=== PATIENT | female | born 1990 | race Two or more races ===

== ENCOUNTER 2018-10-23 19:14 | Inpatient (IN) | payer OTHER ==
[~2018-10-23] VITALS: Ht 167.6 cm; Wt 70.3 kg
--- NOTE | 2018-10-23 19:35 | NUR ---
Pt came to emergency department complaining of nausea, vomitting, diarrhea, and abd pain. Pt AxOx4. Respirations even and unlabored. Abd pain 7/10, non-radiating in the lower R quadrant. Pain started after eating a burrito yesterday, vomitting and diarrhea x8 since yesterday. Pt put on the monitor. Pending eval from .
[2018-10-23 19:56] LABS: APPEARANCE,URINE Clear (CLEAR); BILIRUBIN,URINE Negative (NEGATIVE); BLOOD, URINE Negative Ery/uL (NEGATIVE); COLOR,URINE Yellow (YELLOW); KETONES,URINE Negative (NEGATIVE); LEUKOCYTE ESTERASE ,URINE Negative (NEGATIVE); NITRITE, URINE Negative (NEGATIVE); PH,URINE 8.5 (5.0-8.0); PROTEIN,URINE Negative (NEGATIVE); UGLUCOSE Negative (NEGATIVE)
[2018-10-23] MEDS ORDERED: IV NS 0.9% 1,000 ML BAG IV ONE (20:00)
[2018-10-23] MEDS ORDERED: ONDANSETRON HCL/PF 4 MG/2 ML VIAL IVP ONE (20:00)
[2018-10-23] MEDS ORDERED: KETOROLAC TROMETHAMINE INJ 30 MG/ML VIAL IV ONE (20:00)
[2018-10-23] MEDS ORDERED: KETOROLAC TROMETHAMINE INJ 30 MG/ML VIAL ONE (20:02)
[2018-10-23] MEDS ORDERED: ONDANSETRON HCL/PF 4 MG/2 ML VIAL ONE ×2 (20:02→20:56)
[2018-10-23 20:09] LABS: BASOPHILS % (AUTO) 0.2 % (0.0-2.0); EOSINOPHILS % (AUTO) 0.5 % (0.0-6.0); HEMATOCRIT 41 % (33-45); HEMOGLOBIN 13.6 g/dL (11.5-14.8); LYMPHOCYTES % (AUTO) 12.7 % (20.0-44.0); MEAN CORPUSCULAR HGB CONC 33 g/dl (31.0-36.0); MEAN CORPUSCULAR VOLUME 93 fL (82-100); MONOCYTES # (AUTO) 0.6 /CMM (0.1-1.30); MONOCYTES % (AUTO) 8.3 % (2.0-12.0); NEUTROPHILS # (AUTO) 6.1 /CMM (1.8-8.9); NEUTROPHILS % (AUTO) 78.3 % (43.0-81.0); PLATELET COUNT (AUTO) 194 /CMM (150-450); RED BLOOD CELL COUNT(AUTO) 4.43 MIL/uL (4.0-5.2); WHITE BLOOD COUNT (AUTO) 7.9 K/uL (4.3-11.0)
[2018-10-23 20:24] LABS: ALBUMIN 3.7 g/dL (3.4-5.0); BILIRUBIN,DIRECT 0.1 mg/dL (0.0-0.2); BILIRUBIN,TOTAL 0.4 mg/dL (0.2-1.0); CREATININE 0.8 mg/dL (0.6-1.3); POTASSIUM 3.5 mmol/L (3.5-5.1); TOTAL PROTEIN, SERUM 7.4 g/dL (6.4-8.2)
--- NOTE | 2018-10-23 20:40 | NUR ---
Pt back from CT.
--- NOTE | 2018-10-23 20:45 | NUR ---
Pain reassessed 04/06. Nausea still present. Paula SALEH notified. Pt on the monitor awaiting CT results.
[2018-10-23] MEDS ORDERED: CT SWABBABLE VALVE TRANS SET 1 EA INFUS.SET MC ONE (20:51)
[2018-10-23] MEDS ORDERED: IOHEXOL-300 100 ML VIAL IV ONE (20:52)
[2018-10-23] MEDS ORDERED: IV NS 0.9% 250 ML IV ONE (20:52)
[2018-10-23] MEDS ORDERED: TRAMADOL HCL 50 MG TABLET ONE (20:57)
[2018-10-23] MEDS ORDERED: ONDANSETRON HCL/PF 4 MG/2 ML VIAL IV ONE (21:00)
[2018-10-23] MEDS ORDERED: TRAMADOL HCL 50 MG TABLET PO ONE (21:00)
--- NOTE | 2018-10-23 21:04 | NUR ---
Pt advised not to drive due to administration of narcotic. Pt verbalizes understanding.
[2018-10-23] MEDS ORDERED: CEFOXITIN 2 G in IV NS 0.9% 100 ML IV ONE (21:30)
[2018-10-23] MEDS ORDERED: CEFOXITIN 1 G VIAL ONE (21:31)
--- NOTE | 2018-10-23 21:38 | NUR ---
Pt ambulated to the bathroom steady gait noted.
--- NOTE | 2018-10-23 21:40 | NUR ---
Pt returned to bed. Pt on the monitor.
--- NOTE | 2018-10-23 22:03 | NUR ---
REPORT GIVEN TO BRITTANY DUMONT FOR CHESTER.
--- NOTE | 2018-10-23 23:30 | NUR ---
MS RN OPENING NOTES: RECEIVED PT FROM ER. NO SOB NOTED. PT COMPLAINING OF MILD 4/10 RIGHT LOWER QUADRANT AB PAIN. NO N/V. PT HAS IV ON R AC #20G AND IS PATENT AND INTACT .FATHER AT BEDSIDE. INSTRUCTED PT THAT SHE IS NPO UNTIL FURTHER NOTICE. BED KEPT IN LOW, LOCKED POSITION, AND SIDE RAILS X 2 UP. WILL CONTINUE TO MONITOR PT.
[2018-10-23] MEDS ORDERED: IV NS 0.9% 1,000 ML IV PRN (23:34)
[2018-10-23 23:43] VITALS: BP 114/63
[2018-10-23] MEDS ORDERED: PIPERACILLIN /TAZOBACTAM 3.375 G VIAL IV ONE (23:49)
[2018-10-23] MEDS: PIPERACILLIN /TAZOBACTAM 3.375 G in IV D5W 50 ML IV SCH (23:56)
[2018-10-24] VITALS (26 sets, daily range): BP systolic 86–116; BP diastolic 35–70
[2018-10-24] MEDS ORDERED: Z GUARD REMEDY 2 OZ OINT TP PRN
[2018-10-24] MEDS ORDERED: ACETAMINOPHEN 325 MG TABLET PO PRN
[2018-10-24] MEDS ORDERED: MAG HYDROX/AL HYDROX/SIMETH 30 ML UDC PO PRN
[2018-10-24] MEDS ORDERED: PIPERACILLIN /TAZOBACTAM 3.375 G in IV D5W 50 ML IV ONE ×2
[2018-10-24] MEDS ORDERED: MAGNESIUM HYDROXIDE 30 ML UDC PO PRN
--- NOTE | 2018-10-24 | NUR ---
MS RN NOTES: ZOSYN 3.375G OVERRODE BY CHARGE NURSE.
--- NOTE | 2018-10-24 01:13 | NUR ---
MS RN NOTES: SPOKE WITH DR. PETERS. INFORMED HIM THAT PT IS NPO AND HAS NO IV PAIN MEDS. GOT ORDER FOR MORPHINE 1MG IV Q3HR PRN FOR PAIN. PT'S CURRENT PAIN IS 6/10.
[2018-10-24] MEDS: ONDANSETRON HCL/PF 4 MG/2 ML VIAL IVP PRN ×2 (01:18→16:10)
--- NOTE | 2018-10-24 01:22 | NUR ---
MS RN NOTES: PT COMPLAINING OF 6/10 RLQ AB ACHY AND SHARP PAIN. PT WAS ADMINISTERED MORPHINE 1MG VIA IV. PT ALSO ADMINISTERED ZOFRAN 4MG IV. WILL CONTINUE TO MONITOR PT.
[2018-10-24] MEDS ORDERED: MORPHINE SULFATE INJ 4 MG/ML DISP.SYRIN IV PRN (01:30)
--- NOTE | 2018-10-24 05:24 | NUR ---
RN NOTES: CONSENT FOR PROCEDURE, BLOOD TRANSFUSION, AND ANESTHESIA WAS OBTAINED AND PLACED IN CHART.
--- NOTE | 2018-10-24 05:52 | NUR ---
MS DUMONT NOTES: PT BROUGHT DOWN TO OR ROOM. Addendum: 10/24/18 at 0604 by GIA JAUREGUI RN INFORMED OR NURSE THAT SHE HAS A 0600 ZOSYN 3.375G ZOSYN DOSE TO BE ADMINISTERED.
--- NOTE | 2018-10-24 05:58 | NUR ---
MS RN NOTES: IMPORTANT BELONGINGS LIKE PURSE, GLASSES, AND PHONE BROUGHT UP TO NURSING STATION /CHARGE NURSE DRAWER.
[2018-10-24] MEDS ORDERED: BUPIVACAINE MPF 0.5% W/EPI INJ 30 ML VIAL ONE (06:02)
[2018-10-24] MEDS ORDERED: PIPERACILLIN /TAZOBACTAM 3.375 G VIAL IV ONE (06:07)
[2018-10-24] MEDS ORDERED: HYDROMORPHONE INJ 2 MG/ML DISP.SYRIN ONE (06:10)
[2018-10-24] MEDS ORDERED: MIDAZOLAM HCL 2 MG/2ML VIAL ONE (06:11)
[2018-10-24] MEDS ORDERED: ROCURONIUM BROMIDE 50 MG/5 ML ONE (06:11)
--- NOTE | 2018-10-24 06:11 | NUR ---
MS RN NOTES: ZOSYN 3.375G 0600 AM DOSE BROUGHT DOWN TO OR.
[2018-10-24] MEDS ORDERED: ANESTHESIA TRAY IN PYXIS 1 EA TRAY MC ONE (06:17)
[2018-10-24] MEDS: PIPERACILLIN /TAZOBACTAM 3.375 G in IV D5W 50 ML IV SCH (06:30)
--- NOTE | 2018-10-24 06:30 | NUR ---
MS RN NOTES: ZOSYN 3.375G 0600 DOSE TO BE GIVEN IN OR IV ABX WAS BROUGHT DOWN THERE.
--- NOTE | 2018-10-24 06:33 | NUR ---
MS RN CLOSING NOTES: PT STILL IN OR FOR LAP APPENDECTOMY POSSIBLE OPEN. WILL ENDORSE TO AM NURSE FOR CHESTER.
[2018-10-24 06:43] LABS: BASOPHILS % (AUTO) 0.2 % (0.0-2.0); EOSINOPHILS % (AUTO) 1.7 % (0.0-6.0); HEMATOCRIT 39 % (33-45); HEMOGLOBIN 12.8 g/dL (11.5-14.8); LYMPHOCYTES # (AUTO) 1.9 /CMM (0.8-4.8); LYMPHOCYTES % (AUTO) 28.5 % (20.0-44.0); MEAN CORPUSCULAR HGB CONC 33 g/dl (31.0-36.0); MEAN CORPUSCULAR VOLUME 93 fL (82-100); MONOCYTES # (AUTO) 0.8 /CMM (0.1-1.30); NEUTROPHILS # (AUTO) 3.9 /CMM (1.8-8.9); NEUTROPHILS % (AUTO) 57.6 % (43.0-81.0); PLATELET COUNT (AUTO) 160 /CMM (150-450); RED BLOOD CELL COUNT(AUTO) 4.14 MIL/uL (4.0-5.2); WHITE BLOOD COUNT (AUTO) 6.8 K/uL (4.3-11.0)
[2018-10-24 06:54] LABS: ALBUMIN 3.4 g/dL (3.4-5.0); BILIRUBIN,TOTAL 0.3 mg/dL (0.2-1.0); CALCIUM, SERUM 8.1 mg/dL (8.5-10.1); CREATININE 0.8 mg/dL (0.6-1.3); MAGNESIUM 2.1 mg/dL (1.8-2.4); PHOSPHORUS 3.8 mg/dL (2.5-4.9); POTASSIUM 3.5 mmol/L (3.5-5.1); TOTAL PROTEIN, SERUM 6.6 g/dL (6.4-8.2)
--- NOTE | 2018-10-24 07:30 | NUR ---
RN OPENING NOTE RECEIVED REPORT. PT CURRENTLY IN OR FOR APPENDECTOMY. PHARMACY REQUESTING F/U CALL ONCE PT ARRIVES ON UNIT. WILL CONTINUE AWAITING PT RETURN ON UNIT.
--- NOTE | 2018-10-24 09:30 | NUR ---
RN NOTES PT TO BE TRANSFERRED TO ICU RM [id number] FROM PACU. WILL PROVIDE REPORT TO RECEIVING RN.
[2018-10-24] MEDS ORDERED: DOCUSATE SODIUM 100 MG CAPSULE PO PRN (10:00)
[2018-10-24] MEDS ORDERED: ZOLPIDEM TARTRATE 5 MG TABLET PO PRN ×2 (10:00)
[2018-10-24] MEDS ORDERED: MORPHINE SULFATE INJ 2 MG/ML DISP.SYRIN IV PRN ×2 (10:00)
[2018-10-24] MEDS ORDERED: HYDROMORPHONE INJ 0.5 MG/0.5 ML SYRINGE IV PRN ×2 (10:00)
[2018-10-24 10:20] LABS: BASOPHILS % (AUTO) 0.1 % (0.0-2.0); EOSINOPHILS % (AUTO) 0.1 % (0.0-6.0); HEMATOCRIT 40 % (33-45); HEMOGLOBIN 13.2 g/dL (11.5-14.8); LYMPHOCYTES # (AUTO) 0.5 /CMM (0.8-4.8); LYMPHOCYTES % (AUTO) 4.4 % (20.0-44.0); MEAN CORPUSCULAR HGB CONC 33 g/dl (31.0-36.0); MEAN CORPUSCULAR VOLUME 93 fL (82-100); MONOCYTES # (AUTO) 0.3 /CMM (0.1-1.30); MONOCYTES % (AUTO) 2.3 % (2.0-12.0); NEUTROPHILS # (AUTO) 10.6 /CMM (1.8-8.9); NEUTROPHILS % (AUTO) 93.1 % (43.0-81.0); PLATELET COUNT (AUTO) 172 /CMM (150-450); RED BLOOD CELL COUNT(AUTO) 4.33 MIL/uL (4.0-5.2); WHITE BLOOD COUNT (AUTO) 11.3 K/uL (4.3-11.0)
[2018-10-24] MEDS: IV LR 1000 ML 1,000 ML IV PRN (10:22)
[2018-10-24 10:28] LABS: CALCIUM, SERUM 7.7 mg/dL (8.5-10.1); CREATININE 0.8 mg/dL (0.6-1.3); POTASSIUM 4.5 mmol/L (3.5-5.1)
[2018-10-24 10:34] LABS: ALBUMIN 3.3 g/dL (3.4-5.0); BILIRUBIN,TOTAL 0.5 mg/dL (0.2-1.0); MAGNESIUM 1.9 mg/dL (1.8-2.4); PHOSPHORUS 3.1 mg/dL (2.5-4.9); TOTAL PROTEIN, SERUM 6.5 g/dL (6.4-8.2)
[2018-10-24] MEDS: PIPERACILLIN /TAZOBACTAM 3.375 G in IV D5W 100 ML IV SCH ×2 (11:33→20:11)
[2018-10-24] MEDS ORDERED: PIPERACILLIN /TAZOBACTAM 3.375 G in IV D5W 50 ML IV SCH (12:00)
--- NOTE | 2018-10-24 13:05 | NUR ---
FITNESS/WELLNESS DIRECTOR NOTES RECEIVED REPORT FROM MARYANN PT ALERT ORIENTED, S/P LAP APPY 10/24/[address] PRATER, SITE WITH CDI DRESSING, NO BLEEDING, NO SOB NOTED. NO N/V. PT HAS IV ON R AC #20G WITH LR AT 80 ML/HR, ONGOING ZOSYN IV, FATHER AT BEDSIDE. REMAINS NPO UNTIL FURTHER NOTICE. BED KEPT IN LOW, LOCKED POSITION, AND SIDE RAILS X 2 UP. WILL CONTINUE TO MONITOR PT.
[2018-10-24] MEDS: CEFAZOLIN SODIUM 1 GM in IV SODIUM CHLORIDE 0.9% 50 ML IV SCH (17:44)
--- NOTE | 2018-10-24 18:34 | NUR ---
APPLICATIONS SUPPORT LEAD CLOSING NOTES PT RESTING IN BED, PT ALERT ORIENTED, S/P LAP APPY 10/24/[address] PRATER, SITE WITH CDI DRESSING, NO BLEEDING, NO SOB NOTED. NO N/V. PT HAS IV ON R AC #20G WITH LR AT 80 ML/HR, ON CLEAR LIQUID DIET. BED KEPT IN LOW, LOCKED POSITION, AND SIDE RAILS X 2 UP. ALL NEEDS MET. NO OTHER SIGNIFICANT CHANGE IN CONDITION. CALL LIGHT WITHIN REACH. WILL ENDORSE TO NEXT SHIFT FOR CHESTER.
--- NOTE | 2018-10-24 19:30 | NUR ---
SENIOR POWER SCHEDULER: RECEIVED PT IN BED, ALERT AND ORIENTED X 3. ON 3L 02 VIA NC WT NO ACUTE DISTRESS. S/P OPEN APPENDECTOMY WT NO ACTIVE BLEEDING ON SURGICAL SITE. SR ON RETAIL CASHIER. AFEBRILE. ABLE TO REPOSITION HERSELF AND SIT ON BEDSIDE COMMODE. CONTINUE ON LR AT 80ML/HR WT NO IV INFILTRATION. HOB AT 35 DEGREES. SAFETY PRECAUTION NOTED.
[2018-10-24] MEDS: HYDROCODONE/APAP 5/325MG 1 EACH TABLET PO PRN (23:53)
[2018-10-25] VITALS (17 sets, daily range): BP systolic 93–129; BP diastolic 43–69
[2018-10-25] MEDS: CEFAZOLIN SODIUM 1 GM in IV SODIUM CHLORIDE 0.9% 50 ML IV SCH (02:04)
[2018-10-25] MEDS: IV LR 1000 ML 1,000 ML IV PRN (04:11)
[2018-10-25] MEDS: PIPERACILLIN /TAZOBACTAM 3.375 G in IV D5W 100 ML IV SCH ×2 (04:12→13:00)
[2018-10-25 05:12] LABS: CREATININE 0.9 mg/dL (0.6-1.3); POTASSIUM 3.8 mmol/L (3.5-5.1)
[2018-10-25 05:13] LABS: BASOPHILS % (AUTO) 0.1 % (0.0-2.0); EOSINOPHILS % (AUTO) 0.4 % (0.0-6.0); HEMATOCRIT 33 % (33-45); HEMOGLOBIN 11.4 g/dL (11.5-14.8); LYMPHOCYTES # (AUTO) 1.9 /CMM (0.8-4.8); LYMPHOCYTES % (AUTO) 23.1 % (20.0-44.0); MEAN CORPUSCULAR HGB CONC 34 g/dl (31.0-36.0); MEAN CORPUSCULAR VOLUME 92 fL (82-100); MONOCYTES % (AUTO) 11.5 % (2.0-12.0); NEUTROPHILS # (AUTO) 5.4 /CMM (1.8-8.9); NEUTROPHILS % (AUTO) 64.9 % (43.0-81.0); PLATELET COUNT (AUTO) 166 /CMM (150-450); RED BLOOD CELL COUNT(AUTO) 3.63 MIL/uL (4.0-5.2); WHITE BLOOD COUNT (AUTO) 8.3 K/uL (4.3-11.0)
--- NOTE | 2018-10-25 05:45 | NUR ---
INTERNATIONAL LOGISTICS COORDINATOR: NO SIGNIFICANT CHESTER DURING THE SHIFT. MOSTLY SR (GOES SB WT HR IN THE 50s WHEN ASLEEP). NO ACTIVE BLEEDING OR ADVERSE CHANGES ON SURGICAL DRESSING. WILL CONTINUE TO MONITOR.
--- NOTE | 2018-10-25 08:00 | NUR ---
ICU/RN INITIAL NOTES,AM RECEIVED REPORT FROM NIGHT NURSE. PT RESTING IN BED COMFORTABLY. ON ROOM AIR, NO ACUTE DISTRESS NOTED. PT AAOX4. SINUS ON TELE, WITH OCCASIONAL PAC'S. PT POST OP, PAIN ASSESSED, NO PAIN MEDICATIONS DESIRED AT THIS TIME. WILL CONTINUE TO MONITOR. ALL NEEDS WILL BE ATTENDED TO, SAFETY MEASURES TAKEN. BED SIDE COMMODE AT BEDSIDE. PT AMBULATORY. WILL CONTINUE TO MONITOR AND ASSESS.
[2018-10-25] MEDS: HYDROCODONE/APAP 5/325MG 1 EACH TABLET PO PRN (10:41)
[2018-10-25] MEDS ORDERED: HYDR-3972 PO (15:06)
--- NOTE | 2018-10-25 15:25 | NUR ---
ICU/RN: SPOKE TO , UPDATES GIVEN. PT CLEARED FOR DISCHARGE. PT INSTRUCTED TO FOLLOW UP WITH PC AND SURGEON IN ONE WEEK. DRESSING CHANGED.
--- NOTE | 2018-10-25 17:00 | NUR ---
ICU/RN: ALL DISCHARGE PAPERWORK DONE. BELONGINGS SENT WITH PT, FORM SIGNED. ABDOMINAL DRESSING CHANGED, CDI. MEDICATION PRESCRIPTION SENT WITH PT. PIV REMOVED, NO S/S OF BLEEDING NOTED. ALL NEEDS ATTENDED TO, SAFETY MEASURES TAKEN. PT ESCORTED OUT IN A WHEEL CHAIR. FATHER WILL TAKE PT HOME.
== END 2018-10-25 16:55 | disposition home or self-care (01) | DRG 223 ==
LOC: ER 19:21 → MED 23:10 → ICU 10-24 09:21
PROVIDERS: ADMIT Internal Medicine; ATTEND Nurse Practitioner Acute Care
PROC: 0DTJ0ZZ Resection of Appendix, Open Approach (ICD-10-PCS; principal; 2018-10-24)
PROC: 4A12X45 Monitoring of Cardiac Electrical Activity, Ambulatory, External Approach (ICD-10-PCS; principal; 2018-10-24)
PROC: 0DJD4ZZ Inspection of Lower Intestinal Tract, Percutaneous Endoscopic Approach (ICD-10-PCS; principal; 2018-10-24)
DX: K35.30 Acute appendicitis with localized peritonitis, without perforation or gangrene (principal); E44.1 Mild protein-calorie malnutrition; D72.829 Elevated white blood cell count, unspecified; Z87.891 Personal history of nicotine dependence; I97.711 Intraoperative cardiac arrest during other surgery; Y83.8 Other surgical procedures as the cause of abnormal reaction of the patient, or of later complication, without mention of misadventure at the time of the procedure; R00.1 Bradycardia, unspecified; Z68.25 Body mass index [BMI] 25.0-25.9, adult; Z53.31 Laparoscopic surgical procedure converted to open procedure; Y82.9 Unspecified medical devices associated with adverse incidents
CPT/HCPCS: 36415; 80048-TC; 80053-TC; 80061-TC; 80076-TC; 81000-TC; 82962-TC; 83605-TC; 83690-TC; 83735-TC; 84100-TC; 84703-TC; 85025-TC; 85610-TC; 85730-TC; 86850-TC; 87040-TC; 87081-TC; 88304-TC; 93307-TC; A4216; G0378; J0461; J0690; J0694; J1100; J1170; J1885; J2250; J2270; J2405; J2543; J2704; J3490; J7030; J7050; J7060; J7120; Q9967